=== PATIENT | female | born 1955 | race Caucasian/White ===

== ENCOUNTER 2018-12-17 13:49 | Outpatient (CLI) | payer MEDICARE | END 2018-12-17 23:59 | disposition home or self-care (01) | LOC: RT 13:49 | PROVIDERS: ATTEND Orthopaedic Surgery Hand Surgery | DX: Z01.810 Encounter for preprocedural cardiovascular examination (principal); M18.11 Unilateral primary osteoarthritis of first carpometacarpal joint, right hand; M72.0 Palmar fascial fibromatosis [Dupuytren] | CPT/HCPCS: 93005 ==

== ENCOUNTER 2020-02-02 10:13 | Outpatient (CLI) | payer MEDICARE ==
--- NOTE | 2020-02-07 15:27 | DEXA Report ---
Reason: HX OF MS OSTEOPENIA Procedure Date: 02/02/2020 Accession Number: [id number] / [id number] Procedure: DEX - Dexa Spine and/or Hip CPT Code: Final Report FULL RESULT: PROCEDURE: Dexa Spine and/or Hip INDICATIONS: HX OF MS OSTEOPENIA TECHNIQUE: Dual energy x-ray absorptiometry (DXA) was performed on a [employer]. Regions measured are the AP Spine, femoral neck, and if needed forearm. COMPARISON: No prior DEXA scan on current machine are available for comparison. FINDINGS: Lumbar Spine: Bone Mineral Density 1.281 g/cm/cm,T score 0.8. No osteopenia or osteoporosis. Left Hip: Bone Mineral Density 0.860 g/cm/cm,T score -1.2, osteopenia. Left Femoral Neck: Bone Mineral Density 0.845 g/cm/cm, T score -1.4, osteopenia. (T score greater or equal to -1.0: NORMAL) (T score from -1.1 to -2.4: OSTEOPENIA) (T score less than or equal to -2.5 to: OSTEOPOROSIS) Impression: 1. Progressive osteopenia within the left hip and an slightly improved osteopenia within the femoral neck as above compared to 2016. Patients with diagnosis of osteoporosis or osteopenia should have regular bone mineral density assessment. For those eligible for Medicare, routine testing is allowed once every 2 years. Testing frequency can be increased for patients who have rapidly progressing disease or for those who are receiving medical therapy to restore bone mass. Reviewed by: Tessa Hopper MD on 02/07/2020 3:26 PM PDT Approved by: Tessa Hopper MD on 02/07/2020 3:26 PM PDT Station ID: [id number]
== END 2020-02-02 10:14 | disposition home or self-care (01) ==
LOC: DI 10:13
PROVIDERS: ATTEND Physical Medicine & Rehabilitation
DX: M85.88 Other specified disorders of bone density and structure, other site (principal)
CPT/HCPCS: 77080

== ENCOUNTER 2021-02-03 09:00 | Outpatient (CLI) | payer MEDICARE, OTHER ==
--- NOTE | 2021-02-03 10:17 | XRAY Report ---
PROCEDURE: Chest 2 View X-Ray INDICATIONS: NIGHT SWEATS TECHNIQUE: 2 view(s) of the chest. COMPARISON: None. FINDINGS: Surgical changes and devices: None. Lungs and pleura: No pleural effusions or pneumothorax. Lungs are clear. Mediastinum: Mediastinal contours are normal. Heart size is normal. Bones and chest wall: No suspicious bony abnormalities. Soft tissues appear unremarkable. IMPRESSION: Normal for age, source of current symptoms is not seen. Reviewed by: Moises Haque MD on 02/03/2021 9:15 AM [facility] Approved by: Moises Haque MD on 02/03/2021 9:15 AM [facility] Station ID: [id number]
== END 2021-02-03 09:01 | disposition home or self-care (01) ==
LOC: DI.S 09:00
PROVIDERS: ATTEND Nurse Practitioner Family
DX: R61 Generalized hyperhidrosis (principal)

== ENCOUNTER 2021-02-05 07:02 | Outpatient (CLI) | payer MEDICARE, OTHER ==
[2021-02-07 15:21] LABS: NIL 0.02 IU/mL
[2021-02-10 14:31] LABS: CORTISOL,SALIVA 0.39 mcg/dL
== END 2021-02-05 07:03 | disposition home or self-care (01) ==
LOC: LAB.S 07:02
PROVIDERS: ATTEND Nurse Practitioner Family
DX: R61 Generalized hyperhidrosis (principal)
CPT/HCPCS: 36415; 82530; 82533; 86480

== ENCOUNTER 2023-06-17 07:08 | Outpatient (CLI) | payer MEDICARE, OTHER ==
[2023-06-17 15:12] LABS: BASOPHILS # (AUTO) 0.1 10^3/uL (0.0-0.1); BASOPHILS % (AUTO) 1.2 %; EOSINOPHILS # (AUTO) 0.2 10^3/uL (0.0-0.7); EOSINOPHILS % (AUTO) 3.8 %; HCT - HEMATOCRIT 41.2 % (37.0-47.0); HGB - HEMOGLOBIN 13.1 g/dL (12.0-16.0); LYMPHOCYTES % (AUTO) 51.7 %; MEAN CORPUSCULAR HEMOGLOBIN 29.5 pg (27.0-31.0); MEAN CORPUSCULAR HGB CONC 31.8 g/dL (32.0-36.0); MEAN CORPUSCULAR VOLUME 92.8 fL (81.0-99.0); MEAN PLATELET VOLUME 10.4 fL (7.9-10.8); MONOCYTES # (AUTO) 0.4 10^3/uL (0.0-1.0); MONOCYTES % (AUTO) 6.1 %; NEUTROPHILS # (AUTO) 2.1 10^3/uL (1.5-6.6); PLT - PLATELET COUNT 251 10^3/uL (130-450); RED BLOOD COUNT 4.44 10^6/uL (4.20-5.40); RED CELL DISTRIBUTION WIDTH 12.5 % (12.0-15.0); WHITE BLOOD COUNT 5.7 x10^3/uL (4.8-10.8)
[2023-06-17 17:04] LABS: ALBUMIN 4.3 g/dL (3.2-5.5); HDL CHOLESTEROL 68 mg/dL
[2023-06-17 17:08] LABS: ALKALINE PHOSPHATASE 50 IU/L (42-121); ALT ALANINE AMINOTRANSFERASE 12 IU/L (10-60); AST ASPARTATE AMINOTRANSFERASE 14 IU/L (10-42); BILIRUBIN,TOTAL 0.6 mg/dL (0.2-1.0); BUN - BLOOD UREA NITROGEN 10 mg/dL (6-20); CALCIUM 9.8 mg/dL (8.5-10.3); CARBON DIOXIDE - CO2 31 mmol/L (21-32); CHLORIDE 106 mmol/L (101-111); CHOL/HDL RATIO 2.2 (<4.4); CHOLESTEROL 147 mg/dL; CREATININE 0.9 mg/dL (0.6-1.3); GFR - MDRD 62 (>89); GLUCOSE 94 mg/dL (74-104); LDL CHOLESTEROL,CALCULATED 63 mg/dL; LDL/HDL RATIO 0.9 (<4.4); POTASSIUM 4.3 mmol/L (3.5-4.5); SODIUM 141 mmol/L (135-145); TOTAL PROTEIN 6.5 g/dL (6.4-8.9); TRIGLYCERIDES 78 mg/dL (48-352); VLDL CHOLESTEROL 16 mg/dL
== END 2023-06-17 07:09 | disposition home or self-care (01) ==
LOC: LAB.S 07:08
PROVIDERS: ATTEND Internal Medicine
DX: G35 Multiple sclerosis (principal); E78.5 Hyperlipidemia, unspecified; R07.9 Chest pain, unspecified; E03.9 Hypothyroidism, unspecified; M19.90 Unspecified osteoarthritis, unspecified site
CPT/HCPCS: 36415; 80053; 80061; 83036; 83721; 84443; 85025

== ENCOUNTER 2024-02-02 15:23 | Outpatient (CLI) | payer MEDICARE, OTHER ==
--- NOTE | 2024-02-03 14:38 | XRAY Report ---
PROCEDURE: Foot 3+V RT INDICATIONS: FOREFOOT PAIN TECHNIQUE: 3 views of the foot were acquired. COMPARISON: None. FINDINGS: Bones: Metatarsus adductus and hallux valgus. There are postsurgical changes from bunionectomy and o steotomy of the distal first metatarsal. Mild degenerative joint disease. Osteopenia. No fractures or dislocations. No suspicious bony lesions. Soft tissues: No tibiotalar joint effusion. Achilles tendon appears normal. IMPRESSION: 1. No acute bony abnormality. 2. Postsurgical changes in the distal first metatarsal. 3. Mild degenerative joint disease. 4. Osteopenia. Reviewed by: Avinash Becker MD on 02/03/2024 2:36 PM PDT Approved by: Avinash Becker MD on 02/03/2024 2:36 PM PDT Station ID: [id number]
== END 2024-02-02 18:00 | disposition home or self-care (01) ==
LOC: DI.S 15:23
PROVIDERS: ATTEND Podiatrist
DX: M19.071 Primary osteoarthritis, right ankle and foot (principal); M85.871 Other specified disorders of bone density and structure, right ankle and foot